=== PATIENT | male | born 1945 | race Caucasian/White ===

== ENCOUNTER → 2024-01-23 12:53 | Outpatient (REF) | payer MEDICARE, OTHER, SELFPAY | LOC: HWRAD 12:53 | PROVIDERS: ATTENDING PHYSICIAN Otolaryngology; FAMILY PHYSICIAN Internal Medicine | DX: H91.90 Unspecified hearing loss, unspecified ear (principal) | CPT/HCPCS: 70480 ==

== ENCOUNTER 2024-01-26 02:46 | Emergency (ER) | payer MEDICARE, OTHER, SELFPAY ==
[2024-01-26] VITALS (9 sets, daily range): BP systolic 109–147; BP diastolic 58–79; BMI 26.2
[2024-01-26 03:01] LABS: % Basophils 0.4 % (0-2); % Immature Granulocytes 0.5 % (0-0.5); % Lymphocytes 8.8 % (20.5-51.1); % Monocytes 7.3 % (1.7-9.3); Absolute Basophils 0.1 10^3/uL (0-0.2); Absolute Eosinophils 0.2 10^3/uL (0-0.7); Absolute Immature Granulocytes 0.1 10^3/uL (0-0.05); Absolute Lymphocytes 1.5 10^3/uL (1.2-3.4); Absolute Monocytes 1.2 10^3/uL (0.1-0.6); Absolute Neutrophils 13.5 10^3/uL (1.4-6.5); Hemoglobin 11.2 g/dL (13.0-18.0); Mean Corp Hgb Conc. 32.9 g/dL (33.0-37.0); Mean Corpuscular Hgb 25.4 pg (27.0-31.0); Mean Corpuscular Volume 77.1 fL (80.0-94.0); Mean Platelet Volume 8.9 fL (7.4-10.4); Nucleated Red Blood Cells % 0 % (-); Platelet Count 376 10^3/uL (130-400); Red Blood Cell Count 4.41 10^6/uL (4.70-6.10); Red Cell Dist. Width 17.9 % (11.5-14.5); White Blood Cell Count 16.5 10^3/uL (4.8-10.8)
[2024-01-26] MEDS: NSS 250 IV (03:08)
[2024-01-26] MEDS: NITROSTAT (SUBLINGUAL) 0.400000000000000022 MG SL (03:10)
[2024-01-26 03:26] LABS: APTT 31.3 Sec (23.4-35.0)
--- NOTE | 2024-01-26 03:30 | ED.GENMED ---
History of Present Illness
General
Chief Complaint: Chest Pain
Source: patient and ambulance crew
Exam Limitations: none
Time Seen by Provider: 01/26/24 02:52
Nursing documentation reviewed up to this point in time: agreed with
Travel History
Have you had any contact with someone who has COVID-19?: No
Do you have any symptoms of coronavirus? Fever > 100 degrees, chills, cough, shortness of breath, sore throat, loss of taste or smell, muscle aches, or headache?: No
History of Present Illness
History of Present Illness:
This is a 78-year-old gentleman who has history of CAD, prior MIs, prior PTCA with stent most recently 2018. He follows with Dr. Mitchell. He has history of [id number] diabetes, hyperlipidemia, GERD who states he awoke at midnight with
substernal chest heaviness which he describes as 'submit brick on his chest' no accompanying symptoms but does admit that chest pain is worse with deep breath. He denies shortness of breath, no palpitations, no nausea, no diaphoresis, no dizziness
nor lightheadedness. He did take 3 chewable baby aspirin at home with onset of pain. He is chronically maintained on low-dose aspirin every other day.
He arrives via EMS. No prehospital interventions.
Chest pain currently at 3 out of 10. Nonradiating.
He is unsure of current chest pain feels similar to previous episodes of angina.
Past History
Past History
ED Past Medical History: Arrthythmia (Paroxysmal atrial fibrillation), CAD, GERD, HTN, Hypercholesterolemia, NIDDM, [place] ([place] 2011) and Other (Anemia, GI bleed with negative endoscopy and colonoscopy x2)
ED Past Surgical History: Cardiac (History of having 3 stents LAD October 2011)
Social History
Tobacco: Former smoker
Alcohol: Occasional
Personal:
Living: with family
Employment: Employed (pharmacist)
Family History
Family History: CAD
Phy Exam
Physical Exam
Physical Exam:
GENERAL: 78-year-old gentleman appears his stated age, awake and alert appears in mild distress, mildly uncomfortable but easily communicative.
EYE: anicteric
NECK: Supple, nontender, no meningismus, no significant adenopathy.
ENT: oral mucosa is moist. No rhinorrhea.
CARDIAC: Regular rate and rhythm. no murmur. There is very mild tenderness to palpation left parasternal region. Unclear if palpation exactly reproduces patient's pain complaint.
LUNGS: Clear breath sounds bilaterally, no acute respiratory distress, no wheezes/rales/rhonchi
ABDOMEN: Rotund, soft, nondistended, without focal tenderness, no r/g, no cvat. normoactive BS.
NEUROLOGICAL: Alert and oriented x3, no focal neuro deficits.
SKIN: Warm and dry, normal color, skin intact. No rash.
MUSCULOSKELETAL: No C/C/E. peripheral pulses are full and equal b/l. No palpable tenderness.
PSYCH: Normal and appropriate interaction.
Scores
Heart Score for Chest Pain Patients
STEMI patient?: Not applicable
Course
Orders/Labs/Results
Orders:
Orders
01/26/24 02:48
Electrocardiogram (*1) Urgent
Reason for Study: Chest Pain
EKG- Treatment ONCE
01/26/24 02:55
Complete Blood Count/With Diff Urgent
Comprehensive Metabolic Panel Urgent
Troponin I Urgent
01/26/24 03:00
PTT Urgent
01/26/24 03:06
Nitroglycerin Sublingual [Nitrostat (Sublingual)] 0.4 mg SL NOW STA
01/26/24 03:07
0.9% Sodium Chloride 250 ml [Nss] 250 ml IV BOLUS
Nitroglycerin Sublingual [Nitrostat (Sublingual)] 0.[address]
01/26/24 03:29
ECG [Electrocardiogram (*1)] Urgent
Reason for Study: Chest Pain
EKG- Treatment ONCE
01/26/24 03:38
Heparin 4,000 units IV NOW STA
CR Chest - 2 Views Urgent
Comment:
Reason For Exam: chest pain
01/26/24 03:[address] Non Medication Order As Directed
Physician Order: PTT 6 hours after initial start of Heparin infusion
Above order entered?: Yes
01/26/24 03:45
Heparin 06199 Units/250 ml 25,000 units in 250 ml IV PER PROTOCOL
Weight to be used for heparin protocol in kilograms (kg):: 85.1
Protocol:: Cardiac Tx/Acute Coronary
PTT Goal Range to be used:: PTT 73 to 111 seconds
Order type:: Initial
INITIAL Infusion Dose (UNITS/KG/hr) & then follow protocol:: 12 units/kg/hr
Infusion Dose in UNITS/hr & then follow protocol (UNITS/hr):: 1,000
INFUSION RATE in mL/hr & then follow protocol (mL/hr):: 10
PTT less than or equal to 64 seconds:: Increase rate by 200 units/hr (+ 2 mL/hr)
PTT 64.1 to 72.9 seconds:: Increase rate by 100 units/hr (+ 1 mL/hr)
PTT 73 to 111 seconds:: Target Range. No change in rate.
PTT 111.1 to 130.9 seconds:: Decrease rate by 100 units/hr (- 1 mL/hr)
PTT 131 to 199.9 seconds:: HOLD for 1 hr. Then decrease rate by 200 units/hr (- 2 mL/hr)
PTT greater than or equal to 200 seconds:: HOLD for 2 hrs & Notify Provider. Then decrease by 200 units/hr (-
2 mL/hr)
Lab follow-up:: Each change, PTT q6h until 2 consecutive are therapeutic. Then PTT
daily.
01/26/24 04:00
Flush (0.9% Sodium Chloride) [Flush (Nss)] See Dose Instructions IV PER PROTOCOL
01/26/24 04:48
CT Chest Pe Study Urgent
Comment:
Reason For Exam: acute pleuritic chest pain
Troponin I Urgent
01/26/24 06:12
Mag Hydrox/Al Hydrox/Simeth [Maalox] 30 ml Phenobarb/Hyoscy/Atropine/Scop [] 10 ml Viscous Lidocaine 2% [Xylocaine Viscous Cup] 10 ml PO NOW
01/26/24 06:15
Mag Hydrox/Al Hydrox/Simeth [Maalox] 30 ml .ROUTE .[facility]
Phenobarb/Hyoscy/Atropine/Scop [] 10 ml .ROUTE .[facility]
01/26/24 06:16
Viscous Lidocaine 2% [Xylocaine Viscous Cup] 15 ml .ROUTE .[facility]
01/26/24 06:34
Sucralfate Suspension [Carafate Suspension] 1 gm PO NOW STA
Abnormal Lab Results
01/26/24
02:55
WBC 16.5 H 10^3/uL
(4.8-10.8)
RBC 4.41 L 10^6/uL
(4.70-6.10)
Hgb 11.2 L g/dL
(13.0-18.0)
Hct 34.0 L %
(39.0-52.0)
MCV 77.1 L fL
(80.0-94.0)
MCH 25.4 L pg
(27.0-31.0)
MCHC 32.9 L g/dL
(33.0-37.0)
RDW 17.9 H %
(11.5-14.5)
Abs Immat Gran (auto) 0.1 H 10^3/uL
(0-0.05)
Absolute Neuts (auto) 13.5 H 10^3/uL
(1.4-6.5)
Absolute Monos (auto) 1.2 H 10^3/uL
(0.1-0.6)
Neutrophils % 82.0 H %
(42.2-75.2)
Lymphocytes % 8.8 L %
(20.5-51.1)
Sodium 133 L mmol/L
(135-145)
Chloride 95 L mmol/L
(98-107)
BUN 27 H mg/dl
(9-20)
Glucose 123 H mg/dl
(70-99)
Total Protein 6.1 L g/dl
(6.3-8.2)
01/26/24 02:55
01/26/24 02:55
Vital Signs
Initial and Last Documented VS:
Initial Vital Signs
Temp Pulse Resp BP Pulse Ox
98.6 F 65 17 146/76 100
01/26/24 02:48 01/26/24 02:48 01/26/24 02:48 01/26/24 02:48 01/26/24 02:48
Last Documented Vital Signs
Temp Pulse Resp BP Pulse Ox
98.6 F 68 12 138/74 100
01/26/24 02:48 01/26/24 06:15 01/26/24 06:15 01/26/24 06:00 01/26/24 06:15
MDM/Problems Addressed
Differential Diagnosis Includes:
Concern for ACS/unstable angina, pleurisy, pneumonia, GERD, costochondritis.
Labs are pending including troponin.
EKG shows normal sinus rhythm with PACs, minimal T wave inversion laterally overall similar to previous EKG 2021. Prehospital EKG is similar as well.
Systolic blood pressure 146/70. Patient reports 1 prior episode of near syncope after nitroglycerin.
Will give a small bolus of IV fluids and trial sublingual nitroglycerin.
Chronic conditions affecting care: DM, HTN, CAD and Other (Hyperlipidemia, GERD)
*Radiology
Radiology exam reviewed: preliminary read by ED provider (Chest x-ray is unremarkable, unchanged from previous.) and radiology read reviewed (CAT scan shows large hiatal hernia with fluid in the distal esophagus. No PE, clear lung lópez.)
*Pulse Oximetry
Patient hypoxic: no
*EKG
Interpreted by ED Provider?: Yes
Comparison EKG: no changes (Unchanged from previous 2019)
Rate: normal
Rhythm: sinus and PAC's
[place]: left axis deviation
Interval: normal interval
QRS Pattern: normal QRS
Ischemia: T-wave inversion
*Correspondence Representative Interpretation
Rate: normal
Interpretation: normal
Rhythm: sinus and PAC's
*Critical Care Note
Total Time (30-74mins, 75-104mins- exclusive of procedures): Not Applicable
Update Note
Update Note:
01/26/2024 0335 AM
Patient remains hemodynamically stable but has had no relief of chest pain after sublingual nitroglycerin in fact pain is somewhat worsened and he continues to have increased pain with deep breath but denies shortness of breath.
Repeat EKG shows more pronounced T wave inversion laterally that is more pronounced from EKG upon arrival but overall appears similar to EKG from 2020.
Labs are still pending. Thus far CBC shows mild but stable anemia. Moderately elevated white blood cell count of 16.5.
Chemistries and troponin are pending.
Due to concern for ACS will start IV heparin and will plan for cardiology consult.
01/26/2024 0617 AM
Repeat troponin remains flat.
Chest x-ray is unremarkable.
Overall patient appears comfortable, resting and sleeping when undisturbed but continues with substernal chest discomfort.
CT of the chest shows no PE nor dissection. Clear lung lópez, no pneumothorax nor pleural effusion. There is a large hiatal hernia with fluid within the distal esophagus likely secondary to reflux. There is also note of cholelithiasis without
evidence of cholecystitis.
Patient does admit to chronic nighttime heartburn which promptly resolves with antacid.
He also admits to eating spicy tacos last night for dinner which is unusual for him.
I have high suspect that his chest pain is acid reflux and hiatal hernia in nature. He continues to have no abdominal tenderness on palpation.
Will trial a GI cocktail.
01/26/2024 0710 AM
After GI cocktail and a dose of Carafate patient reports complete relief of chest discomfort.
Recommend he continue omeprazole 40 mg daily and will add a short course of as needed Carafate.
Recommend he avoid spicy or fried foods, caffeinated beverages, alcoholic beverages.
Prompt follow-up with PCP for recheck.
ED Attending Note
-
Portions of this chart may have been created with voice recognition software.� Occasional wrong word or��sound alike� substitutions may have occurred due to the inherent limitations of voice recognition software.
Discharge Plan
Departure
Patient Disposition: Home (Routine Discharge)
Date of Disposition: 01/26/24
Time of Disposition: 07:20
Patient with high blood pressure during this ER visit?: No
Condition: Good
Discharge Problem:
acute acid reflux with esophagitis, Hiatal hernia with gastroesophageal reflux disease and esophagitis
Instructions: Acid Reflux and GERD in Adults (DC)
Prescriptions:
New
sucralfate [Carafate] 100 mg/mL suspension
10 ml PO QID PRN (Reason: acid reflux) Qty: 400 0RF
No Action
atorvastatin 40 MG tablet
40 mg PO HS Qty: 0
metoprolol succinate 50 MG tablet extended release 24 hr
50 mg PO AMHS
multivitamin with folic acid [Tab-A-Netta] 1 TABLET tablet
1 tab PO DAILY
nitroglycerin 0.4 MG tablet, sublingual
0.4 mg sublingual [id number] PRN (Reason: chest pain) Qty: 15 0RF
ezetimibe 10 MG tablet
10 mg PO DAILY
coenzyme Q10 200 MG capsule
400 mg PO DAILY
cyanocobalamin (vitamin B-12) 5,000 MCG tablet,disintegrating
5,000 mcg PO DAILY
chlorthalidone 25 MG tablet
25 mg PO DAILY
aspirin 81 MG tablet,chewable
81 mg PO HS
glimepiride 4 MG tablet
4 mg PO DAILY
magnesium oxide 500 MG tablet
500 mg PO DAILY
ferrous sulfate [iron] 325 MG tablet
650 mg PO DAILY
esomeprazole magnesium [Nexium 24HR] 20 MG capsule,delayed release(DR/EC)
40 mg PO HS
esomeprazole magnesium [Nexium 24HR] 20 MG capsule,delayed release(DR/EC)
20 mg PO DAILY
dulaglutide [Trulicity] 0.75 MG/0.5 ML pen injector
0.75 mg SQ SA
Patient Comments:
Patient administers on friday
metformin 500 MG tablet
1,000 mg PO AMHS
acetaminophen 325 MG tablet
650 mg PO Q4HPRN PRN (Reason: mild pain) 0RF
Referrals:
Denny Callejas MD [Non-Admitting Privileges] - Call in 1-3 days for appt
Interventions
Interventions:
*Risk Screen - Suicide Last Done: 01/26/24 02:53
*General Assessment Last Done: 01/26/24 02:53
*Neglect/Abuse Screening Last Done: 01/26/24 02:53
ED- Fall Risk Assessment Last Done: 01/26/24 02:59
*ED COVID-19 Vaccine History Last Done: 01/26/24 02:53
ED- Cardiac Assessment Last Done: 01/26/24 03:00
Discharge Date and Time
Print Language: THAI
[2024-01-26 03:32] LABS: ALT (SGPT) 16 U/L (0-50); AST (SGOT) 18 U/L (17-59); Alkaline Phosphatase 57 U/L (38-126); Blood Urea Nitrogen 27 mg/dl (9-20); Calcium 10.1 mg/dl (8.4-10.2); Carbon Dioxide 27 mmol/L (22-30); Chloride 95 mmol/L (98-107); Estimated Creatinine Clearance 64 ml/min; Glucose 123 mg/dl (70-99); Potassium 4.1 mmol/L (3.5-5.1); Sodium 133 mmol/L (135-145); Total Bilirubin 0.5 mg/dl (0.2-1.3); Total Protein 6.1 g/dl (6.3-8.2); eGFR > 60.00
[2024-01-26 03:36] LABS: Troponin I < 0.012 ng/ml
[2024-01-26] MEDS: HEPARIN 4000 UNITS IV (03:53)
[2024-01-26] MEDS: HEPARIN 25000 UNITS/250 ML IV (03:55)
[2024-01-26 05:22] LABS: Troponin I < 0.012 ng/ml
[2024-01-26] MEDS: MAALOX 50 PO (06:18)
[2024-01-26] MEDS: CARAFATE SUSPENSION 1 GM PO (07:04)
== END 2024-01-26 08:22 | disposition home or self-care (01) ==
LOC: EMR 02:46
PROVIDERS: EMERGENCY PHYSICIAN Emergency Medicine; FAMILY PHYSICIAN Internal Medicine
DX: K21.00 Gastro-esophageal reflux disease with esophagitis, without bleeding (principal); K44.9 Diaphragmatic hernia without obstruction or gangrene; I25.10 Atherosclerotic heart disease of native coronary artery without angina pectoris; I25.2 Old myocardial infarction; E11.9 Type 2 diabetes mellitus without complications; E78.00 Pure hypercholesterolemia, unspecified; Z87.891 Personal history of nicotine dependence
CPT/HCPCS: 99285; 96374; 96361; 71046; 71275; 80053; 84484; 85025; 85730; 93005; Q9967

== ENCOUNTER 2024-10-19 10:53 | Emergency (ER) | payer MEDICARE, OTHER, SELFPAY ==
[2024-10-19 10:57] VITALS: BP 156/83
[2024-10-19 10:58] VITALS: BP 156/83
--- NOTE | 2024-10-19 10:58 | ED.GENMED ---
ED Provider Triage
<Alva Llanos PA-C - Last Filed: 10/19/24 11:01>
-
Patient seen by provider in Triage?: Seen in Triage
Attestation: A medical screening examination has been initiated by a qualified medical provider. Based on the assessment performed at this time, it has been determined that an emergent medical condition may exist and the patient has been informed
that further medical evaluation and possible additional diagnostic testing may be needed.
HPI: 78yoM c/o irregular heart beat x 1-2 weeks. No CP/SOB. S/p ablation in 2017. Has not had any known episodes of afib since then. Metoprolol dose recently decreased due to low blood pressures. Not currently on anticoagulation due to history of GI
bleed. Follows with Dr. Mitchell.
GENERAL: Alert , in no apparent distress
EYE: No visual abnormalities.
NECK: Trachea midline
ENT: No visible abnormalities.
LUNGS: No acute respiratory distress
NEUROLOGICAL: Alert and oriented
SKIN: Skin intact. No visible changes.
MUSCULOSKELETAL: Moving extremities normally
PSYCH: Normal and appropriate interaction.
This is a medical evaluation conducted in person to initiate diagnostic evaluation and provide initial therapeutics. Please see further documentation by the treating clinician.
Cardiac labs, magnesium, TSH, and EKG ordered.
History of Present Illness
<Alva Llanos PA-C - Last Filed: 10/19/24 11:01>
General
Chief Complaint: Heart Rate Problem
Time Seen by Provider: 10/19/24 12:03
<Glen Logan MD - Last Filed: 10/19/24 15:33>
General
Source: patient and spouse
Exam Limitations: none
Nursing documentation reviewed up to this point in time: agreed with
History of Present Illness
History of Present Illness:
Patient with history of atrial fibrillation, status post ablation 7 years ago without any further episodes, currently not on any anticoagulation, presents to ED secondary to frequent palpitations, skipped beat sensation, 'not feeling well', over the
past 2 weeks. Patient had an appointment with his primary hog buyer, Dr. Mitchell, 3 weeks ago, at which point metoprolol was decreased from 50 mg twice daily to 50 mg once daily, secondary to low blood pressure. Approxi-1 week afterwards,
patient started to feel aforementioned sensation, at which point patient himself decided to go back on his metoprolol to 50 mg twice daily. Unfortunately, his symptoms have continued since then, but has worsened over the past 3 days. Denies chest
pain. Denies shortness of breath. Denies nausea or vomiting. Denies dizziness. Patient feels as though he may be back in atrial fibrillation rhythm.
Past History
<Alva Llanos PA-C - Last Filed: 10/19/24 11:01>
Past History
ED Past Medical History: Arrthythmia (Paroxysmal atrial fibrillation), CAD, GERD, HTN, Hypercholesterolemia, NIDDM, [place] ([place] October 2011) and Other (Anemia, GI bleed with negative endoscopy and colonoscopy x2)
ED Past Surgical History: Cardiac (History of having 3 stents LAD October 2011)
Social History
Tobacco: Former smoker
Alcohol: Occasional
Personal:
Living: with family
Employment: Employed (pharmacist)
Family History
Family History: CAD
Review of Systems
<Glen Logan MD - Last Filed: 10/19/24 15:33>
Review of Systems
Allergies reviewed?: Yes
All Other Systems: ROS reviewed and negative except as documented in HPI and ROS
Constitutional: Reports no symptoms
EENT: Reports no symptoms
Respiratory: Reports no symptoms
Cardiac: Reports palpitations; Denies chest pain
ABD/GI: Reports no symptoms
: Reports no symptoms
Musculoskeletal: Reports no symptoms
Skin: Reports no symptoms
Neurological: Reports no symptoms; Denies dizzy
Phy Exam
<Glen Logan MD - Last Filed: 10/19/24 15:33>
Physical Exam
Physical Exam:
Physical Exam
General: no apparent distress, not acutely ill. afebrile
Head: nc/at. eomi
Neck: supple. normal range of motion.
Heart: s1/s2 regular rate and rhythm, no murmur. equal radial pulses.
Lungs: no acute respiratory distress. clear bilaterally
Abdomen: normal bowel sounds. not tender.
Neuro: alert and oriented. no focal neurological deficits
Skin: no rash
Psychiatric: well kept. interactive and cooperative
Extremities: no edema. no calf tenderness.
Course
<Alva Llanos PA-C - Last Filed: 10/19/24 11:01>
Orders/Labs/Results
Orders:
Orders
10/19/24 10:55
Electrocardiogram (*1) Urgent
Reason for Study: Atrial Fibrillation
EKG- Treatment ONCE
10/19/24 11:10
Complete Blood Count/With Diff Urgent
Comprehensive Metabolic Panel Urgent
Iron Urgent
Magnesium Urgent
TSH Reflex To Free T4 Urgent
Troponin I Urgent
10/19/24 12:30
0.9% Sodium Chloride 1000 ml [Nss] 1,000 ml IV BOLUS
10/19/24 12:35
Add On- LAB Urgent
Tests Added?: iron
10/19/24 12:45
Magnesium Sulfate 1 G/D5w [Magnesium Sulfate] 1 gm in 100 ml IV NOW
10/19/24 15:16
Add On- LAB Urgent
Tests Added?: TIBC, Ferritin
Abnormal Lab Results
10/19/24
11:10
RBC 4.52 L 10^6/uL
(4.70-6.10)
Absolute Monos (auto) 0.7 H 10^3/uL
(0.1-0.6)
Neutrophils % 75.4 H %
(42.2-75.2)
Lymphocytes % 15.0 L %
(20.5-51.1)
Chloride 96 L mmol/L
(98-107)
BUN 25 H mg/dl
(9-20)
Glucose 133 H mg/dl
(70-99)
Magnesium 1.4 L mg/dl
(1.6-2.3)
10/19/24 11:10
10/19/24 11:10
Vital Signs
Initial and Last Documented VS:
Initial Vital Signs
Temp Pulse Resp BP Pulse Ox
97.7 F 66 17 156/83 95
10/19/24 10:57 10/19/24 10:57 10/19/24 10:57 10/19/24 10:57 10/19/24 10:57
Last Documented Vital Signs
Temp Pulse Resp BP Pulse Ox
97.7 F 60 16 159/74 99
10/19/24 10:58 10/19/24 15:24 10/19/24 15:24 10/19/24 15:24 10/19/24 15:24
<Glen Logan MD - Last Filed: 10/19/24 15:33>
Orders/Labs/Results
Orders:
Orders
10/19/24 10:55
Electrocardiogram (*1) Urgent
Reason for Study: Atrial Fibrillation
EKG- Treatment ONCE
10/19/24 11:10
Complete Blood Count/With Diff Urgent
Comprehensive Metabolic Panel Urgent
Iron Urgent
Magnesium Urgent
TSH Reflex To Free T4 Urgent
Troponin I Urgent
10/19/24 12:30
0.9% Sodium Chloride 1000 ml [Nss] 1,000 ml IV BOLUS
10/19/24 12:35
Add On- LAB Urgent
Tests Added?: iron
10/19/24 12:45
Magnesium Sulfate 1 G/D5w [Magnesium Sulfate] 1 gm in 100 ml IV NOW
10/19/24 15:16
Add On- LAB Urgent
Tests Added?: TIBC, Ferritin
Abnormal Lab Results
10/19/24
11:10
RBC 4.52 L 10^6/uL
(4.70-6.10)
Absolute Monos (auto) 0.7 H 10^3/uL
(0.1-0.6)
Neutrophils % 75.4 H %
(42.2-75.2)
Lymphocytes % 15.0 L %
(20.5-51.1)
Chloride 96 L mmol/L
(98-107)
BUN 25 H mg/dl
(9-20)
Glucose 133 H mg/dl
(70-99)
Magnesium 1.4 L mg/dl
(1.6-2.3)
10/19/24 11:10
10/19/24 11:10
Vital Signs
Initial and Last Documented VS:
Initial Vital Signs
Temp Pulse Resp BP Pulse Ox
97.7 F 66 17 156/83 95
10/19/24 10:57 10/19/24 10:57 10/19/24 10:57 10/19/24 10:57 10/19/24 10:57
Last Documented Vital Signs
Temp Pulse Resp BP Pulse Ox
97.7 F 60 16 159/74 99
10/19/24 10:58 10/19/24 15:24 10/19/24 15:24 10/19/24 15:24 10/19/24 15:24
<Glen Logan MD - Last Filed: 10/19/24 15:33>
MDM/Problems Addressed
MDM/Problems Addressed:
History, exam, and EKG, as well as on the monitor, correlating with patient's presenting symptoms, consistent with PACs/PVCs. Blood work suggestive of mild dehydration along with hypomagnesemia. After receiving IV fluids and magnesium IV, there
does appear to be less frequent episodes of PVCs noted on the monitor. In addition, patient subjectively reports improvement in symptoms.
Discussed with on-call cardiology, Dr. Guardado. Recommends patient to continue metoprolol 50 mg twice daily, along with previously discussed hydration and magnesium repletion, as well as outpatient follow-up with his primary hog buyer, Dr. Mitchell.
<Glen Logan MD - Last Filed: 10/19/24 15:33>
*EKG
Interpreted by ED Provider?: Yes
EKG Intrepretation Date: 10/19/24
Heart Rate: 68
Rate: normal
Rhythm: sinus and PAC's
[place]: normal axis
Interval: normal interval
*Critical Care Note
Total Time (30-74mins, 75-104mins- exclusive of procedures): Not Applicable
ED Attending Note
<Alva Llanos PA-C - Last Filed: 10/19/24 11:01>
-
Portions of this chart may have been created with voice recognition software.� Occasional wrong word or��sound alike� substitutions may have occurred due to the inherent limitations of voice recognition software.
Discharge Plan
Departure
Patient Disposition: Home (Routine Discharge)
Date of Disposition: 10/19/24
Time of Disposition: 15:13
Patient with high blood pressure during this ER visit?: Yes
Condition: Good
Discharge Problem:
Contraction, premature ventricular
Instructions: Premature Ventricular Contraction
Prescriptions:
No Action
atorvastatin 40 MG tablet
40 mg PO HS Qty: 0
metoprolol succinate 50 MG tablet extended release 24 hr
50 mg PO AMHS
multivitamin with folic acid [Tab-A-Netta] 1 TABLET tablet
1 tab PO DAILY
nitroglycerin 0.4 MG tablet, sublingual
0.4 mg sublingual [id number] PRN (Reason: chest pain) Qty: 15 0RF
ezetimibe 10 MG tablet
10 mg PO DAILY
coenzyme Q10 200 MG capsule
400 mg PO DAILY
cyanocobalamin (vitamin B-12) 5,000 MCG tablet,disintegrating
5,000 mcg PO DAILY
chlorthalidone 25 MG tablet
25 mg PO DAILY
aspirin 81 MG tablet,chewable
81 mg PO HS
glimepiride 4 MG tablet
4 mg PO DAILY
magnesium oxide 500 MG tablet
500 mg PO DAILY
ferrous sulfate [iron] 325 MG tablet
650 mg PO DAILY
esomeprazole magnesium [Nexium 24HR] 20 MG capsule,delayed release(DR/EC)
40 mg PO HS
esomeprazole magnesium [Nexium 24HR] 20 MG capsule,delayed release(DR/EC)
20 mg PO DAILY
dulaglutide [Trulicity] 0.75 MG/0.5 ML pen injector
0.75 mg SQ SA
Patient Comments:
Patient administers on friday
metformin 500 MG tablet
1,000 mg PO AMHS
acetaminophen 325 MG tablet
650 mg PO Q4HPRN PRN (Reason: mild pain) 0RF
sucralfate [Carafate] 100 mg/mL suspension
10 ml PO QID PRN (Reason: acid reflux) Qty: 400 0RF
Referrals:
Kenroy Mitchell MD [Active] -
Gabbie Restrepo DO [Family Provider] -
Activity Restrictions/Additional Instructions:
As discussed, please follow-up with your hog buyer for further evaluation and treatment. In the meantime, swelling recommend increasing water intake, along with taking magnesium supplements daily, as well as food items that are rich in magnesium.
Interventions
Interventions:
*Risk Screen - Suicide Last Done: 10/19/24 10:59
*General Assessment Last Done: 10/19/24 10:59
*Neglect/Abuse Screening Last Done: 10/19/24 10:59
*ED COVID-19 Vaccine History Last Done: 10/19/24 10:59
*Nursing Disposition Last Done: 10/19/24 15:24
ED- Cardiac Assessment Last Done: 10/19/24 13:11
ED- Pulmonary Assessment Last Done: 10/19/24 13:05
Discharge Date and Time
Discharge Date/Time: 10/19/24 15:25
Print Language: [id number]
[2024-10-19 11:27] LABS: % Basophils 0.2 % (0-2); % Eosinophils 0.9 % (0-6); % Immature Granulocytes 0.5 % (0-0.5); % Neutrophils 75.4 % (42.2-75.2); Absolute Eosinophils 0.1 10^3/uL (0-0.7); Absolute Lymphocytes 1.3 10^3/uL (1.2-3.4); Absolute Monocytes 0.7 10^3/uL (0.1-0.6); Absolute Neutrophils 6.4 10^3/uL (1.4-6.5); Hematocrit 39.9 % (39.0-52.0); Hemoglobin 13.5 g/dL (13.0-18.0); Mean Corp Hgb Conc. 33.8 g/dL (33.0-37.0); Mean Corpuscular Hgb 29.9 pg (27.0-31.0); Mean Corpuscular Volume 88.3 fL (80.0-94.0); Mean Platelet Volume 9.6 fL (7.4-10.4); Nucleated Red Blood Cells % 0 % (-); Platelet Count 300 10^3/uL (130-400); Red Blood Cell Count 4.52 10^6/uL (4.70-6.10); Red Cell Dist. Width 13.5 % (11.5-14.5); White Blood Cell Count 8.5 10^3/uL (4.8-10.8)
[2024-10-19 11:35] LABS: ALT (SGPT) 18 U/L (0-50); AST (SGOT) 21 U/L (17-59); Albumin 4.6 g/dl (3.5-5.0); Alkaline Phosphatase 53 U/L (38-126); Blood Urea Nitrogen 25 mg/dl (9-20); Calcium 9.6 mg/dl (8.4-10.2); Carbon Dioxide 28 mmol/L (22-30); Chloride 96 mmol/L (98-107); Glucose 133 mg/dl (70-99); Magnesium 1.4 mg/dl (1.6-2.3); Potassium 4.2 mmol/L (3.5-5.1); Sodium 136 mmol/L (135-145); Total Protein 6.8 g/dl (6.3-8.2); eGFR > 60.00
[2024-10-19 11:46] LABS: Troponin I < 0.012 ng/ml
[2024-10-19 12:41] VITALS: BP 153/80
[2024-10-19 12:52] VITALS: BMI 26.1
[2024-10-19] MEDS: NSS 1000 IV (12:59)
[2024-10-19 13:00] VITALS: BP 154/75
[2024-10-19] MEDS: MAGNESIUM SULFATE 100 IV (13:00)
[2024-10-19 13:25] LABS: Iron 99 ug/dl (49-181)
[2024-10-19 14:00] VITALS: BP 159/74
[2024-10-19 15:24] VITALS: BP 159/74
[2024-10-19 16:14] LABS: Percent Saturation 29 % (20-50); Total Iron Binding Capacity 333 ug/dl (261-462)
[2024-10-19 16:44] LABS: Ferritin 66.5 ng/ml (17.9-464.0)
== END 2024-10-19 15:25 | disposition home or self-care (01) ==
LOC: EMR 10:53
PROVIDERS: Physician Assistant; EMERGENCY PHYSICIAN Emergency Medicine; FAMILY PHYSICIAN Internal Medicine
DX: I49.3 Ventricular premature depolarization (principal); I25.10 Atherosclerotic heart disease of native coronary artery without angina pectoris; I25.2 Old myocardial infarction; I48.0 Paroxysmal atrial fibrillation; K21.9 Gastro-esophageal reflux disease without esophagitis; I10 Essential (primary) hypertension; E11.9 Type 2 diabetes mellitus without complications; E78.00 Pure hypercholesterolemia, unspecified; Z87.891 Personal history of nicotine dependence; Z95.5 Presence of coronary angioplasty implant and graft; Z79.899 Other long term (current) drug therapy
CPT/HCPCS: 96374; 96361; 99284; 80053; 82728; 83540; 83550; 83735; 84443; 84484; 85025; 93005